=== PATIENT | female | born 1945 | race Caucasian/White ===

== ENCOUNTER 2019-01-21 21:40 | Emergency (ER) | payer MEDICARE, OTHER ==
[~2019-01-21] VITALS: Ht 167.6 cm; Wt 79.4 kg
[~2019-01-21 21:40] MED LIST: 24 HOUR ALLER15.8 ML; ALBU90OI INH; AMLO10 PO; ASPI81CH PO; FERR325 PO; GLIP5 PO; LEVSOD50 PO; LOSHYD PO; METF500 PO; MOTION RELIEF25 MG PO; MULVITMIND PO; NEBI5 PO
[2019-01-21 22:09] LABS: BASOPHILS ABSOLUTE AUTO 0.06 K/mm3 (0.00-0.23); BASOPHILS PERCENT AUTO 1 % (0-2); EOSINOPHILS ABSOLUTE AUTO 0.18 K/mm3 (0.00-0.68); EOSINOPHILS PERCENT AUTO 2 % (0-6); IMMATURE GRAN ABSOLUTE AUTO 0.06 K/mm3 (0.00-0.10); IMMATURE GRAN PERCENT AUTO 1 % (0-1); LYMPHOCYTES ABSOLUTE AUTO 1.44 K/mm3 (0.84-5.20); LYMPHOCYTES PERCENT AUTO 13 % (21-46); MONOCYTES ABSOLUTE AUTO 0.92 K/mm3 (0.16-1.47); MONOCYTES PERCENT AUTO 8 % (4-13); Mean Corpuscular HGB 30.1 pg (26.0-34.0); Mean Corpuscular Volume 97 fL (80-100); Mean Platelet Volume 11.4 fL (9.1-12.4); NEUTROPHILS ABSOLUTE AUTO 8.64 K/mm3 (1.96-9.15); NEUTROPHILS PERCENT AUTO 77 % (41-73); Platelet Count 144 K/mm3 (150-400); RDW Coefficient Variation 15.4 % (11.7-14.2); RDW Standard Deviation 54.4 fL (35.1-46.3); Red Blood Cell Count 2.99 M/mm3 (3.80-5.20)
[2019-01-21 22:22] LABS: Alanine Aminotransfer (ALT/SGP 22 U/L (12-78); Albumin, Blood 2.7 g/dL (3.4-5.0); Albumin/Globulin Ratio 0.8 (0.8-1.8); Alk Phos 107 U/L (50-136); Anion Gap 10 mmol/L (6-16); Aspartate Aminotrans (AST/SGOT 32 U/L (12-37); Bilirubin, Total 0.6 mg/dL (0.1-1.0); Blood Urea Nitrogen 24 mg/dL (8-24); Bun/Creatinine Ratio 29.7 (12.0-20.0); CO2, Blood 27 mmol/L (21-32); Calcium, Blood 8.2 mg/dL (8.5-10.1); Chloride, Blood 107 mmol/L (98-108); Creatinine, Blood 0.81 mg/dL (0.40-1.00); Globulin, Blood 3.6 g/dL (2.2-4.0); Glomerular Filtration Rate >60 (60-); Glucose, Blood 173 mg/dL (70-99); Potassium, Blood 4.8 mmol/L (3.5-5.5); Sodium, Blood 144 mmol/L (136-145); Total Protein, Blood 6.3 g/dL (6.4-8.2)
[2019-01-21 23:12] LABS: International Normalized Ratio 1.14; Prothrombin Time Results 11.9 Sec (9.7-11.5)
== END 2019-01-22 01:10 | disposition short-term general hospital (02) ==
LOC: ER 21:40
PROVIDERS: Emergency Medicine
DX: K92.2 Gastrointestinal hemorrhage, unspecified (principal); Z88.8 Allergy status to other drugs, medicaments and biological substances; Z88.5 Allergy status to narcotic agent; Z79.899 Other long term (current) drug therapy; Z79.84 Long term (current) use of oral hypoglycemic drugs; Z79.82 Long term (current) use of aspirin; I25.10 Atherosclerotic heart disease of native coronary artery without angina pectoris; E11.9 Type 2 diabetes mellitus without complications; I10 Essential (primary) hypertension; Z86.73 Personal history of transient ischemic attack (TIA), and cerebral infarction without residual deficits; Z95.5 Presence of coronary angioplasty implant and graft
CPT/HCPCS: 31500; 31720; 36430; 36556; 51702; 71045; 80053; 83690; 85025; 85610; 86850; 86900; 86901; 86923; 94002; 96365-59; 96375-59; 96376-59; 99291-25; C1751; C9113; J0330; J2250; J2354; J2405; J2550; J2704; J7030; J7050; P9016; P9035; P9059

== ENCOUNTER 2019-11-25 18:13 | Inpatient (IN) | payer MEDICARE, OTHER ==
[~2019-11-25] VITALS: Ht 162.6 cm; Wt 74.1 kg
[~2019-11-25 18:13] MED LIST changes: +LOSARTAN-HCTZ1 EAC3 PO; -LOSHYD PO
[2019-11-25] MEDS ORDERED: SITA100T2 PO (18:20)
[2019-11-25] MEDS ORDERED: PROP60 PO (18:20)
[2019-11-25] MEDS ORDERED: OMEP20ER PO (18:21)
[2019-11-25 18:54] LABS: BASOPHILS ABSOLUTE AUTO 0.04 K/mm3 (0.00-0.23); BASOPHILS PERCENT AUTO 1 % (0-2); EOSINOPHILS ABSOLUTE AUTO 0.11 K/mm3 (0.00-0.68); EOSINOPHILS PERCENT AUTO 2 % (0-6); Hematocrit 31.1 % (33.0-51.0); Hemoglobin 10.1 g/dL (11.5-16.0); IMMATURE GRAN ABSOLUTE AUTO 0.01 K/mm3 (0.00-0.10); IMMATURE GRAN PERCENT AUTO 0 % (0-1); LYMPHOCYTES ABSOLUTE AUTO 1.36 K/mm3 (0.84-5.20); LYMPHOCYTES PERCENT AUTO 30 % (21-46); MONOCYTES ABSOLUTE AUTO 0.51 K/mm3 (0.16-1.47); MONOCYTES PERCENT AUTO 11 % (4-13); Mean Corpuscular HGB 32.6 pg (26.0-34.0); Mean Corpuscular HGB Conc 32.5 g/dL (31.5-36.5); Mean Corpuscular Volume 100 fL (80-100); NEUTROPHILS ABSOLUTE AUTO 2.49 K/mm3 (1.96-9.15); NEUTROPHILS PERCENT AUTO 55 % (41-73); Platelet Count 101 K/mm3 (150-400); RDW Coefficient Variation 13.8 % (11.7-14.2); RDW Standard Deviation 50.8 fL (35.1-46.3); White Blood Cell Count 4.52 K/mm3 (4.00-11.30)
[2019-11-25 19:11] LABS: Albumin, Blood 3.6 g/dL (3.4-5.0); Bilirubin, Total 0.6 mg/dL (0.1-1.0); Bun/Creatinine Ratio 22.3 (12.0-20.0); Calcium, Blood 8.5 mg/dL (8.5-10.1); Creatinine, Blood 3.81 mg/dL (0.40-1.00); Globulin, Blood 3.5 g/dL (2.2-4.0); Potassium, Blood 5.9 mmol/L (3.5-5.5); Total Protein, Blood 7.1 g/dL (6.4-8.2)
[2019-11-25 19:17] LABS: Troponin I <0.015 ng/mL (0.000-0.040)
[2019-11-25] MEDS ORDERED: SYNTHROID50 MC1 PO (19:42)
[2019-11-25] MEDS ORDERED: FUROSEMIDE40 MG PO (19:42)
[2019-11-25] MEDS ORDERED: SPIRONOLACTONE25 MG PO (19:44)
[2019-11-25 20:34] LABS: Free Thyroxine 1.32 ng/dL (0.70-1.60); Magnesium, Blood 1.8 mg/dL (1.6-2.4)
[2019-11-25 21:08] LABS: Phosphorus, Blood 4.5 mg/dL (2.5-4.9)
--- NOTE | 2019-11-25 22:15 | NUR ---
ADMISSION: PATIENT IS RECIEVED FROM ER VIA STRETCHER. ABLE TO AMBULATE WITH ASSISTANCE TO BATHROOOM TO VOID, UNSTEADY GAIT. PATIENT IS FORGETFUL AND CONFUSED AT TIMES. ORIENTED TO ROOM AND CALL JOSEPH, BED ALARM IS ON FOR SAFETY. NO COMPLIANTS OF PAIN
[2019-11-26 05:09] LABS: BASOPHILS ABSOLUTE AUTO 0.02 K/mm3 (0.00-0.23); BASOPHILS PERCENT AUTO 1 % (0-2); EOSINOPHILS ABSOLUTE AUTO 0.08 K/mm3 (0.00-0.68); EOSINOPHILS PERCENT AUTO 3 % (0-6); Hematocrit 26.7 % (33.0-51.0); Hemoglobin 8.8 g/dL (11.5-16.0); IMMATURE GRAN PERCENT AUTO 0 % (0-1); LYMPHOCYTES ABSOLUTE AUTO 1.19 K/mm3 (0.84-5.20); LYMPHOCYTES PERCENT AUTO 40 % (21-46); MONOCYTES ABSOLUTE AUTO 0.37 K/mm3 (0.16-1.47); MONOCYTES PERCENT AUTO 12 % (4-13); Mean Corpuscular HGB 32.7 pg (26.0-34.0); Mean Corpuscular Volume 99 fL (80-100); Mean Platelet Volume 11.8 fL (9.1-12.4); NEUTROPHILS ABSOLUTE AUTO 1.33 K/mm3 (1.96-9.15); NEUTROPHILS PERCENT AUTO 44 % (41-73); Platelet Count 77 K/mm3 (150-400); RDW Coefficient Variation 13.7 % (11.7-14.2); RDW Standard Deviation 49.7 fL (35.1-46.3); Red Blood Cell Count 2.69 M/mm3 (3.80-5.20); White Blood Cell Count 2.99 K/mm3 (4.00-11.30)
[2019-11-26 05:28] LABS: Bun/Creatinine Ratio 21.3 (12.0-20.0); Calcium, Blood 8.4 mg/dL (8.5-10.1); Creatinine, Blood 3.76 mg/dL (0.40-1.00); Potassium, Blood 4.8 mmol/L (3.5-5.5)
--- NOTE | 2019-11-26 06:34 | NUR ---
SHIFT SUMMARY: PATIENT IS A&O X4 BUT IS FORGETFUL WITH SOME CONFUSION. PATIENT DOES NOT USE THE CALL JOSEPH AND IS REORIENTED TO IT MULTIPLE TIMES, BED ALARM IN ON FOR SAFETY. PATIENT WAS GIVEN TYLENOL FOR A HEADACHE ON ADMISSION AND HADS HAD GOOD EFFECT. IVF ARE INFUSING PER MD ORDER.
--- NOTE | 2019-11-26 18:36 | NUR ---
SHIFT SUMMARY- PT HAS HAD NO ACUTE CHANGE T/O THE SHIFT. IV WAS CHANGED OUT FOR A NEW AC IV. IV RUNNING NS AT 100ML/HR IS NOT POSITIONAL. PT HAS DENIED THE NEED FOR PAIN MEDICATION. ON ROOM AIR. PT IS A 1PA WITH FWW FOR ALL AMBULATION AND TRANSFERS. PT WORKED WITH PHYSICAL THERAPY TODAY BED AND CHAIR ALARMS SHOULD BE USED PT FORGETS TO CALL.
[2019-11-27 04:18] LABS: Albumin, Blood 2.9 g/dL (3.4-5.0); Anion Gap 10 mmol/L (6-16); Blood Urea Nitrogen 63 mg/dL (8-24); Bun/Creatinine Ratio 21.9 (12.0-20.0); CO2, Blood 20 mmol/L (21-32); Calcium, Blood 8.1 mg/dL (8.5-10.1); Chloride, Blood 114 mmol/L (98-108); Creatinine, Blood 2.88 mg/dL (0.40-1.00); Glomerular Filtration Rate 17 (60-); Glucose, Blood 120 mg/dL (70-99); Phosphorus, Blood 4.3 mg/dL (2.5-4.9); Potassium, Blood 4.5 mmol/L (3.5-5.5); Sodium, Blood 144 mmol/L (136-145)
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
--- NOTE | 2019-11-28 03:43 | NUR ---
SUMMARY PT HAS BEEN RESTING QUIETLY WITH FEW INTERRUPTIONS SINCE HS, USUALLY TO GO TO THE RESTROOM. IVF OF NS CONTINUES TO INFUSE AT 100 ML/HR PER MD ORDERS. TYLENOL PO X 2 OF THIS WRITING FOR DISCOMFORT - MCCANN. RESTING QUIETLY AT THIS WRITING. CALL LIGHT IN REACH
[2019-11-28 04:33] LABS: Bun/Creatinine Ratio 22.6 (12.0-20.0); Calcium, Blood 7.8 mg/dL (8.5-10.1); Creatinine, Blood 2.12 mg/dL (0.40-1.00)
--- NOTE | 2019-11-28 12:35 | NUR ---
PT DISCHARGED AT 1220. PT AOX4 AND COOPERATIVE OF CARE NO DISTRESS NOTED. PT WAS TRANSFERING INDEPENDENTLY IN ROOM. ALL PAPERS WERE REVIEWED AND EDUCATIONAL MATERIAL SENT WITH PT. PT INSTRUCTED TO GET BMP DRAWN 11/[address] ROLDAN SO HER PCP CAN REVIEW KIDNEY FUNCTION THURSDAY. PT VERBALIZED UNDERSTANDING. PT ESCORTED TO N ENTRANCE VIA WHEELCHAIR BY THIS TUNNEL MUCKER PT HAD CALLED DAUGHTER TO COME PICK HER UP. ALL BELONGINGS WERE COLLECTED BY PT.
== END 2019-11-28 12:09 | disposition home or self-care (01) | DRG 682 ==
LOC: ER 18:13 → MEDS 18:14 → ENPENDDIS 11-28 10:41 → MEDS 11-28 12:09
PROVIDERS: Internal Medicine; Nurse Practitioner Acute Care; Physician Assistant; ADMIT Internal Medicine
DX: N17.9 Acute kidney failure, unspecified (principal); G92 Toxic encephalopathy; D61.818 Other pancytopenia; I10 Essential (primary) hypertension; E03.9 Hypothyroidism, unspecified; Z74.09 Other reduced mobility; I25.10 Atherosclerotic heart disease of native coronary artery without angina pectoris; Z95.5 Presence of coronary angioplasty implant and graft; E11.9 Type 2 diabetes mellitus without complications; K75.81 Nonalcoholic steatohepatitis (NASH); J32.3 Chronic sphenoidal sinusitis; Z90.5 Acquired absence of kidney; Z86.73 Personal history of transient ischemic attack (TIA), and cerebral infarction without residual deficits
CPT/HCPCS: 36415; 70450; 76770; 80048; 80053; 80069; 82140; 82607; 82746; 83036; 83690; 83735; 84100; 84439; 84443; 84484; 85025; 93005; 93010; 96361; 96374; 97116; 97161; 97165; 99285-25; A9270; A9270-GY; G0378; J2405; J7030

== ENCOUNTER 2020-11-06 14:35 | Emergency (ER) | payer OTHER ==
[~2020-11-06] VITALS: Ht 162.6 cm; Wt 90.7 kg
[~2020-11-06 14:35] MED LIST changes: +FUROSEMIDE40 MG PO; +OMEP20ER PO; +PROP60 PO; +SITA100T2 PO; +SPIRONOLACTONE25 MG PO; +SYNTHROID50 MC1 PO
[2020-11-06] MEDS ORDERED: FURO40 PO (14:50)
[2020-11-06] MEDS ORDERED: POTA10T PO (14:51)
[2020-11-06 15:21] LABS: BASOPHILS ABSOLUTE AUTO 0.04 K/mm3 (0.00-0.23); BASOPHILS PERCENT AUTO 1 % (0-2); EOSINOPHILS ABSOLUTE AUTO 0.16 K/mm3 (0.00-0.68); EOSINOPHILS PERCENT AUTO 3 % (0-6); Hemoglobin 9.8 g/dL (11.5-16.0); IMMATURE GRAN PERCENT AUTO 0 % (0-1); LYMPHOCYTES ABSOLUTE AUTO 0.99 K/mm3 (0.84-5.20); LYMPHOCYTES PERCENT AUTO 20 % (21-46); MONOCYTES ABSOLUTE AUTO 0.52 K/mm3 (0.16-1.47); MONOCYTES PERCENT AUTO 11 % (4-13); Mean Corpuscular HGB 32.8 pg (26.0-34.0); Mean Corpuscular HGB Conc 32.7 g/dL (31.5-36.5); Mean Corpuscular Volume 100 fL (80-100); Mean Platelet Volume 11.2 fL (9.1-12.4); NEUTROPHILS ABSOLUTE AUTO 3.18 K/mm3 (1.96-9.15); NEUTROPHILS PERCENT AUTO 65 % (41-73); Platelet Count 110 K/mm3 (150-400); RDW Coefficient Variation 16.1 % (11.7-14.2); RDW Standard Deviation 60.4 fL (35.1-46.3); Red Blood Cell Count 2.99 M/mm3 (3.80-5.20); White Blood Cell Count 4.89 K/mm3 (4.00-11.30)
[2020-11-06 15:35] LABS: Alanine Aminotransfer (ALT/SGP 16 U/L (12-78); Albumin/Globulin Ratio 0.7 (0.8-1.8); Alk Phos 148 U/L (50-136); Anion Gap 2 mmol/L (6-16); Aspartate Aminotrans (AST/SGOT 32 U/L (12-37); Bilirubin, Total 0.9 mg/dL (0.1-1.0); Blood Urea Nitrogen 35 mg/dL (8-24); Bun/Creatinine Ratio 17.9 (12.0-20.0); CO2, Blood 29 mmol/L (21-32); Calcium, Blood 8.5 mg/dL (8.5-10.1); Chloride, Blood 103 mmol/L (98-108); Creatinine, Blood 1.95 mg/dL (0.40-1.00); Globulin, Blood 4.3 g/dL (2.2-4.0); Glomerular Filtration Rate 26 (60-); Glucose, Blood 141 mg/dL (70-99); Potassium, Blood 4.3 mmol/L (3.5-5.5); Sodium, Blood 134 mmol/L (136-145); Total Protein, Blood 7.3 g/dL (6.4-8.2); Troponin I <0.015 ng/mL (0.000-0.040)
[2020-11-06 16:24] LABS: Source, Urine Catheter
[2020-11-06] MEDS ORDERED: BUME2 PO (16:24)
[2020-11-06] MEDS ORDERED: Aldactone50 MG PO (16:24)
[2020-11-06 16:29] LABS: Appearance, Urine Hazy (Clear); Bilirubin, Urine Neg (Neg); Blood, Urine 3+ (Neg); Color, Urine Yellow (P-Yellow); Glucose Qualitative, Urine Neg (Neg); Ketones, Urine Neg (Neg); Leukocyte Esterase, Urine 1+ (Neg); Nitrite, Urine Neg (Neg); Protein, Urine 1+ (Neg); Specific Gravity, Urine 1.015 (1.003-1.022); Urobilinogen, Urine NORM (Normal)
[2020-11-06 17:33] LABS: Bacteria Many /hpf; Squamous Epithelial Cells Rare /hpf (Few)
== END 2020-11-06 17:40 | disposition home or self-care (01) ==
LOC: ER 14:35
PROVIDERS: Emergency Medicine
DX: I13.0 Hypertensive heart and chronic kidney disease with heart failure and stage 1 through stage 4 chronic kidney disease, or unspecified chronic kidney disease (principal); I50.9 Heart failure, unspecified; E11.22 Type 2 diabetes mellitus with diabetic chronic kidney disease; N18.9 Chronic kidney disease, unspecified; Z79.899 Other long term (current) drug therapy; Z86.73 Personal history of transient ischemic attack (TIA), and cerebral infarction without residual deficits; Z95.5 Presence of coronary angioplasty implant and graft
CPT/HCPCS: 51702; 71045; 80053; 81001; 83880; 84443; 84484; 85025; 87077; 87086; 87186; 93005; 93010; 96374; 96375; 99284-25; J1940; J2405

== ENCOUNTER 2020-11-20 11:50 | Emergency (ER) | payer OTHER ==
[~2020-11-20] VITALS: Ht 162.6 cm; Wt 90.7 kg
[~2020-11-20 11:50] MED LIST changes: +Aldactone50 MG PO; +BUME2 PO; +FURO40 PO; +POTA10T PO
[2020-11-20] MEDS ORDERED: TORSE20 PO (12:04)
[2020-11-20] MEDS ORDERED: LEVSOD75 PO (12:05)
[2020-11-20] MEDS ORDERED: SYNTHROID75 MCG PO (12:05)
[2020-11-20] MEDS ORDERED: POTA10T (12:06)
[2020-11-20 12:12] LABS: BASOPHILS ABSOLUTE AUTO 0.03 K/mm3 (0.00-0.23); BASOPHILS PERCENT AUTO 1 % (0-2); EOSINOPHILS ABSOLUTE AUTO 0.05 K/mm3 (0.00-0.68); EOSINOPHILS PERCENT AUTO 1 % (0-6); Hematocrit 27.6 % (33.0-51.0); Hemoglobin 9.1 g/dL (11.5-16.0); IMMATURE GRAN ABSOLUTE AUTO 0.01 K/mm3 (0.00-0.10); IMMATURE GRAN PERCENT AUTO 0 % (0-1); LYMPHOCYTES ABSOLUTE AUTO 0.74 K/mm3 (0.84-5.20); LYMPHOCYTES PERCENT AUTO 21 % (21-46); MONOCYTES ABSOLUTE AUTO 0.32 K/mm3 (0.16-1.47); MONOCYTES PERCENT AUTO 9 % (4-13); Mean Corpuscular HGB 32.6 pg (26.0-34.0); Mean Corpuscular Volume 99 fL (80-100); NEUTROPHILS ABSOLUTE AUTO 2.32 K/mm3 (1.96-9.15); NEUTROPHILS PERCENT AUTO 67 % (41-73); Platelet Count 98 K/mm3 (150-400); RDW Coefficient Variation 16.4 % (11.7-14.2); RDW Standard Deviation 59.8 fL (35.1-46.3); Red Blood Cell Count 2.79 M/mm3 (3.80-5.20); White Blood Cell Count 3.47 K/mm3 (4.00-11.30)
[2020-11-20 12:27] LABS: Albumin, Blood 2.8 g/dL (3.4-5.0); Albumin/Globulin Ratio 0.7 (0.8-1.8); Bun/Creatinine Ratio 16.1 (12.0-20.0); Calcium, Blood 8.1 mg/dL (8.5-10.1); Creatinine, Blood 3.35 mg/dL (0.40-1.00); Globulin, Blood 4.1 g/dL (2.2-4.0); Potassium, Blood 4.5 mmol/L (3.5-5.5); Total Protein, Blood 6.9 g/dL (6.4-8.2)
== END 2020-11-20 14:55 | disposition home or self-care (01) ==
LOC: ER 11:50
PROVIDERS: Emergency Medicine
DX: E86.0 Dehydration (principal); R79.89 Other specified abnormal findings of blood chemistry; K76.9 Liver disease, unspecified; I10 Essential (primary) hypertension; I25.10 Atherosclerotic heart disease of native coronary artery without angina pectoris; E11.9 Type 2 diabetes mellitus without complications; Z88.5 Allergy status to narcotic agent; Z88.8 Allergy status to other drugs, medicaments and biological substances; Z79.899 Other long term (current) drug therapy
CPT/HCPCS: 80053; 83690; 85025; 93005; 93010; 99285; J7120

== ENCOUNTER 2021-01-28 16:53 | Emergency (ER) | payer OTHER ==
[~2021-01-28] VITALS: Ht 162.6 cm; Wt 90.7 kg
[~2021-01-28 16:53] MED LIST changes: +LEVSOD75 PO; +POTA10T; +SYNTHROID75 MCG PO; +TORSE20 PO
[2021-01-28 19:21] LABS: BASOPHILS ABSOLUTE AUTO 0.04 K/mm3 (0.00-0.23); BASOPHILS PERCENT AUTO 1 % (0-2); EOSINOPHILS ABSOLUTE AUTO 0.09 K/mm3 (0.00-0.68); EOSINOPHILS PERCENT AUTO 2 % (0-6); Hematocrit 28.9 % (33.0-51.0); Hemoglobin 9.8 g/dL (11.5-16.0); IMMATURE GRAN ABSOLUTE AUTO 0.03 K/mm3 (0.00-0.10); IMMATURE GRAN PERCENT AUTO 1 % (0-1); LYMPHOCYTES ABSOLUTE AUTO 0.62 K/mm3 (0.84-5.20); LYMPHOCYTES PERCENT AUTO 10 % (21-46); MONOCYTES ABSOLUTE AUTO 0.62 K/mm3 (0.16-1.47); MONOCYTES PERCENT AUTO 10 % (4-13); Mean Corpuscular HGB 33.1 pg (26.0-34.0); Mean Corpuscular HGB Conc 33.9 g/dL (31.5-36.5); Mean Corpuscular Volume 98 fL (80-100); Mean Platelet Volume 10.6 fL (9.1-12.4); NEUTROPHILS ABSOLUTE AUTO 4.66 K/mm3 (1.96-9.15); NEUTROPHILS PERCENT AUTO 77 % (41-73); Platelet Count 128 K/mm3 (150-400); RDW Coefficient Variation 13.5 % (11.7-14.2); RDW Standard Deviation 48.5 fL (35.1-46.3); Red Blood Cell Count 2.96 M/mm3 (3.80-5.20); White Blood Cell Count 6.06 K/mm3 (4.00-11.30)
[2021-01-28 19:37] LABS: Albumin, Blood 2.9 g/dL (3.4-5.0); Albumin/Globulin Ratio 0.8 (0.8-1.8); Bilirubin, Total 1.4 mg/dL (0.1-1.0); Bun/Creatinine Ratio 19.5 (12.0-20.0); Calcium, Blood 8.2 mg/dL (8.5-10.1); Creatinine, Blood 2.82 mg/dL (0.40-1.00); Globulin, Blood 3.8 g/dL (2.2-4.0); Potassium, Blood 3.7 mmol/L (3.5-5.5); Total Protein, Blood 6.7 g/dL (6.4-8.2)
== END 2021-01-28 20:35 | disposition home or self-care (01) ==
LOC: ER 16:53
PROVIDERS: Emergency Medicine
DX: D64.9 Anemia, unspecified (principal); E87.8 Other disorders of electrolyte and fluid balance, not elsewhere classified; K74.60 Unspecified cirrhosis of liver; N28.9 Disorder of kidney and ureter, unspecified; I10 Essential (primary) hypertension; E11.9 Type 2 diabetes mellitus without complications; W01.10XA Fall on same level from slipping, tripping and stumbling with subsequent striking against unspecified object, initial encounter
CPT/HCPCS: 70450; 71045; 80053; 83880; 84484; 85025; 93005; 93010; 99285-25